=== PATIENT | female | born 1980 | race Caucasian/White ===

== ENCOUNTER 2024-06-01 10:07 | Day surgery (SDC) | payer OTHER, SELFPAY ==
[2024-05-22 11:59] VITALS: BMI 40.2
--- NOTE | 2024-06-01 | PATH_ITS ---
[facility] Accession Number: [id number] No. of containers..01 Tissue . 01 Material submitted: . endometrium - ENDOMETRIAL CURETTINGS . 01 Diagnosis: ENDOMETRIAL CURETTINGS: Inactive endometrium; negative for endometrioid intraepithelial neoplasia or malignancy. Some endometrial fragments demonstrate prominent vessels, suggestive of polyp, if clinical and imaging studies are concordant. Endocervical tissue; negative for significant atypia. [facility] 06/04/2024 1346 Local . 01 Electronically signed: . Sameera Mendez MD, Pathologist NPI- [id number] . 01 Gross description: . ENDOMETRIAL CURETTINGS: Received in formalin are minute fragments of mucoid and hemorrhagic material measuring 3.0 x 3.0 x 0.3 cm in aggregate. Submitted in toto in 1 cassette. /[facility] 06/02/2024 0143 Local . 01 Pathologist provided ICD-10: N93.9 . 01 CPT . 475759 Specimen Comment: A courtesy copy of this report has been sent to [facility] Performed at: [address] [address], [place], [place] [id number] MD Tonny Marrufo MD Phone: [phone]
[2024-06-01] MEDS: LACTATED RINGERS 1,000 ML 42 ML IV (11:00)
[2024-06-01] MEDS: ACETAMINOPHEN 325 MG TABLET 975 MG PO (11:01)
[2024-06-01 11:03] VITALS: BP 117/77; PULSE 99; RESP 20; TEMP 36.9; O2SAT 100; BMI 40.2
--- NOTE | 2024-06-01 11:08 | PM.PREOP ---
Pre-operative Note Interval Note History & Physical reviewed/Exam performed by Physician: Yes Changes to H&P: No ASA Class (for procedural sedation): II
--- NOTE | 2024-06-01 11:54 | SUR.OPER ---
Lithotomy on padded OR bed, torso on wedge for upper body elevation, head on pillow, arms secured on padded arm boards at <90 degrees abduction. Legs secured in padded yellow fins stirrups. Safety strap applied across patient torso
[2024-06-01] MEDS: SILVER NITRATE STICK 1 EACH TOP (12:00)
--- NOTE | 2024-06-01 12:02 | PM.OP.1 ---
Operative Date/Time/Diagnoses Date of procedure: 06/01/24 Time of procedure: 11:45 Pre-op diagnosis: AUB Post-op diagnosis: same Procedure & Clinicians Procedure: hysteroscopy, dilation and curettage, placement of LNG-IUD Same procedure as scheduled: Yes Indications: prolonged AUB Surgeon: Gissell Pierce Click Yes if Unassisted: Yes Anesthesia Type: General Operative Notes Findings: normal external female genitalia cervix and vagina visually wnl endometrial cavity with proliferative appearing tissue, no distinct polyp or fibroid bilateral ostia visualized Closure Type: not applicable Specimen(s): other (endometrial currettings ) Prosthetic devices, grafts, tissues, transplants, or devices: Mirena IUD - Lot [id number] Exp Estimated Blood Loss (mL): 5 Procedure in detail: Pt was taken to the operating room, transferred to OR table and anesthesia was induced with placement of ETT.? Pt had her legs placed in Ayaz stirrups and an exam under anesthesia was performed. The patient was prepped and draped in a sterile fashion.? A time out was performed. A sterile speculum was inserted into the vagina.? The cervix was visualized and grasped anteriorly using a single tooth tenaculum.? The uterus sounded to 9cm and the cervical os was serially dilated using Del[place]illo dilators up to 17f to allow for passage of the hysteroscope.? The 5mm 0 degree hysteroscope was then inserted into the uterus with findings as noted.? The hysteroscope was removed and the uterus was sharply curetted until a gritty texture was noted throughout.? The mirena IUD obtained from office supply was then placed per manufactuer instructions without difficulty, strings trimmed to 3cm. The tenaculum was removed and hemostasis was noted at insertion sites.? The speculum was removed and hemostasis was again noted to be excellent.? The patient then had her legs taken out of stirrups.? The patient tolerated the procedure well and without difficulty.? The patient was awakened from anesthesia and taken to PACU in stable condition. Complications: none Post-operative Condition: stable Disposition: PACU Plan for aftercare: dc to home pending clinical recovery
[2024-06-01 12:08] VITALS: BP 99/61; PULSE 115; RESP 22; TEMP 36.3; O2SAT 95
[2024-06-01 12:12] VITALS: BP 105/69; PULSE 113; RESP 13; O2SAT 95
[2024-06-01 12:18] VITALS: BP 104/73; PULSE 18; RESP 108; O2SAT 96
[2024-06-01 12:23] VITALS: BP 113/76; PULSE 101; RESP 19; TEMP 36.2; O2SAT 95
[2024-06-01] MEDS: BENZOCAINE/MENTHOL 1 LOZ PKT 1 EACH PO (12:27)
[2024-06-01 12:33] VITALS: BP 111/76; PULSE 102; RESP 16; O2SAT 96
== END 2024-06-01 12:56 | disposition home or self-care (01) ==
PROVIDERS: PCP Nurse Practitioner Family; Referring Provider Obstetrics & Gynecology; Visit Provider Obstetrics & Gynecology
PROC: 0UDB8ZZ Extraction of Endometrium, Via Natural or Artificial Opening Endoscopic (ICD-10-PCS; CPT 58558; principal; 2024-06-01 11:45)
DX: N93.9 Abnormal uterine and vaginal bleeding, unspecified (principal); Z30.430 Encounter for insertion of intrauterine contraceptive device
CPT/HCPCS: 58558; 58300; 82962; C1713; J0330; J1100; J1885; J2250; J2405; J2704; J3010